=== PATIENT | female | born 1955 | race Caucasian/White ===

== ENCOUNTER 2016-04-17 09:19 | Emergency (ER) | payer OTHER, MEDICARE ==
[~2016-04-17] VITALS: Ht 167.6 cm; Wt 130.2 kg
[2016-04-17 09:26] VITALS: BP 135/99
--- NOTE | 2016-04-17 10:28 | ED NECK/BACK PAIN COMPLAINT ---
History of Present Illness General Chief Complaint: Low Back Pain/Injury Stated Complaint: LEFT SIDED BACK PAIN Source: patient Exam Limitations: no limitations Vital Signs & Intake/Output Vital Signs & Intake/Output Vital Signs Date Time Temp Pulse Resp B/P Pulse O2 O2 Flow FiO2 Ox Delivery Rate 04/17 0926 98.7 87 20 135/99 96 Room Air Allergies Coded Allergies: amoxicillin (From AUGMENTIN) (UPSET STOMACH 04/17/16) clavulanic acid (From AUGMENTIN) (UPSET STOMACH 04/17/16) Uncoded Allergies: ALL NAUSEA MEDS ("BRIGHT LIGHT IN EYES" 01/22/14) Reconcile Medications Ibuprofen 800 MG TABLET 800 MG PO TID BACK PAIN Levothyroxine Sodium 75 MCG TABLET 1 TAB PO DAILY AC THYROID (Reported) Triage Note: PT TO ED C/O RIGHT SIDED FLANK/LOWER BACK PAIN X 1 WEEK. C/O SOME NAUSEA, DENIES V/D. PAIN WAS WORSE THIS AM. HPI: Pt is a 60 yo lady with a PMHx of fibromyalgia, lumbar and cervical radiculopathy, DJD, BCA with partial masectomy 2013, presents with complaints of back pain. Onset of pain was 7 days ago, when pt was woken up by what she describes as sharp stabbing pain, rated at 8/10. Pain was localized at the right lower back area with no radiating features. Aggravated by movement of sleeping on the left side. Patient reports that the pain subsided, but came back again today. Pt does report in February, she experiened back pain that resolved without any medical intervention. Pt does report nausea but no vomiting. Pt denies any recent back trauma, saddle anesthesia, parasthesias, chest pain,palptiation, fever,weakness/numbness, dysruia/hematuria, abdominal pain. (SABA STAFFORD,RK) Triage Nurses Notes Reviewed? yes (MARY JENNINGS MD) Past History Travel History Traveled to [place] past 21 day No Medical History Renal: URINARY INCONTINENCE Musculoskeletal: chronic back pain, fibromyalgia, psoariatic arthritis Endocrine: hypothyroidism Cancer(s): breast cancer Surgical History Surgical History: lumpectomy Psychosocial History What is your primary language Malay Tobacco Use: Never used ETOH Use: occasional use Illicit Drug Use: denies illicit drug use (RK WALTER MD) Medical History Any Pertinent Medical History? see below for history Family History Hx Contributory? No (MARY JENNINGS MD) Review of Systems Review of Systems Constitutional: Denies: chills, diaphoresis, malaise. Eyes: Denies: blurred vision, pain. Ears, Nose, Throat, Mouth: Denies: see HPI, ear discharge. Respiratory: Reports: no symptoms. Cardiovascular: Reports: no symptoms. Gastrointestinal/Abdominal: Reports: nausea. Denies: abdominal pain, constipation, diarrhea. Musculoskeletal: Reports: back pain, joint pain. Skin: Denies: erythema. Neurological/Psychological: Denies: dementia, headache, numbness. (RK WALTER MD) Review of Systems All Other Systems: Reviewed and Negative (MARY JENNINGS MD) Physical Exam Physical Exam General Appearance: well developed/nourished, no apparent distress, alert, awake Head: atraumatic, normal appearance Eyes: Bilateral: PERRL. Ears, Nose, Throat, Mouth: moist mucous membrane Neck: normal inspection, supple, full range of motion Respiratory: normal breath sounds, no respiratory distress, lungs clear Cardiovascular: regular rate/rhythm Gastrointestinal: normal bowel sounds, soft, non-tender Back: normal range of motion, no vertebral tenderness, tenderness on palpation of right paraspibnal muscles at Lower lumbar region. No CVA tenderness Extremities: normal range of motion, straight leg raised Straight Leg Raising: Right: Negative. Left: Negative. Sensory: Medial Le: L4R, L4L. Motor: Deficit L4 Right: No DTR: Deficit L4 Left: No Neurologic/Psych: alert, oriented x 3, normal gait, negative babinski Skin: intact, normal color (RK WALTER MD) Physical Exam Peripheral Pulses: 4+ carotid (R), 4+ carotid (L) (MARY JENNINGS MD) Progress Differential Diagnosis: musculoskeletal sprain/strain,sciatica,DISK HERNIATION, Nephrolithiasis,pyelo/UTI, cauda equina,exercabation of fibromyalgia Plan of Care: Current Medications Sig/Lottie Start time Last Medication Dose Stop Time Status Admin Ketorolac 60 MG ONCE ONE 04/17 1045 CAN Tromethamine 04/17 1046 (Toradol) Comments: Pt stataed that she does not want any muscle relaxant because she has used them before and do not seem to work for her. (RK WALTER MD) Departure Departure Time of Disposition: 111 Disposition: HOME OR SELF CARE Condition: Stable Clinical Impression Primary Impression: Back pain Referrals: JESSICA PEGUERO,YAIR Mar (PCP/Family) Additional Instructions: Please seek medical attention if back pain persists or worsens. Please take Ibuprofen with food and do not take any over the counter Advil or Aleve. Departure Forms: Customer Survey General Discharge Information Prescriptions: Current Visit Scripts Ibuprofen 800 MG PO TID #27 (SABA STAFFORD,RK) Resident Co-Sign Statement Statement: ED Attending supervision documentation- x I saw and evaluated the patient. I have also reviewed all the pertinent lab results and diagnostic results. I agree with the findings and the plan of care as documented in the Resident's documentation. [] I have reviewed the ED Record and agree with the Resident's documentation. [] Additions or exceptions (if any) to the Resident's note and plan are summarized below: [] (DICK STAFFORD,MARY)
[2016-04-17] MEDS ORDERED: LEVOTHYROXINE75 MCG PO (10:54)
[2016-04-17] MEDS ORDERED: IBUPROFEN800 M1 PO (11:10)
== END 2016-04-17 11:35 ==
LOC: ERH 09:19
DX: M54.5 Low back pain (principal)
CPT/HCPCS: 96372; J1885